=== PATIENT | male | born 2005 | race Caucasian/White ===

== ENCOUNTER 2024-03-23 08:44 | Outpatient (CLI) | payer OTHER, SELFPAY ==
--- NOTE | ~2024-03-23 | US_ITS ---
Abdominal Sonogram: Real-time sonographic imaging of the abdomen was performed. Clinical History: Abdominal cramping Findings: The liver appears normal with no evidence of mass lesion or bile duct dilatation. Main por ko vein demonstrates normal direction of flow. The spleen is normal in size without evidence of foca l lesion. The gallbladder is well distended, and appears normal with no evidence of gallstone or wal l thickening. The common bile duct measures 2 mm. The visualized pancreas, aorta, and IVC are unrema rkable. The right kidney measures 8.5 cm in length and the left kidney measures 8.7 cm. There is no hydronephrosis or renal calculus. Impression: Unremarkable abdominal ultrasound. Reviewed, dictated and finalized at location . Impression: Unremarkable abdominal ultrasound.
== END 2024-03-23 08:45 | disposition home or self-care (01) ==
DX: R10.33 Periumbilical pain (principal); R14.2 Eructation; R11.2 Nausea with vomiting, unspecified
CPT/HCPCS: 76700